=== PATIENT | male | born 1960 ===

== ENCOUNTER 2017-05-27 19:29 | Emergency (ER) | payer OTHER ==
[~2017-05-27] VITALS: Ht 162.6 cm; Wt 53.1 kg
[~2017-05-27 19:29] MED LIST: ASPI-484 PO; ATOR40TA PO; CEPH-350 PO; CLOP75TA52 PO; FURO-81 PO; LISI10TA2 PO; METO50TA4 PO
[2017-05-27 20:00] VITALS: BP 114/57
[2017-05-27] MEDS: DUONEB 0.5 MG-3 MG/3 ML SOLN IH STA (20:34)
[2017-05-27] MEDS ORDERED: DUONEB 0.5 MG-3 MG/3 ML SOLN IH ONE (20:46)
[2017-05-27 20:50] LABS: BASOPHIL % 0.5 % (0.0-0.2); EOSINOPHIL # 0.2 10^3/uL (0.0-0.2); EOSINOPHIL % 5.4 % (0.0-5.0); LYMPHOCYTES # 0.5 10^3/uL (1.0-4.8); LYMPHOCYTES % 12.4 % (24.0-44.0); MEAN CELL HGB 31.5 pg (26-34); MEAN CELL HGB CONCENTRATION 32.8 g/dL (33-37); MEAN PLATELET VOLUME 10.7 fL (7.8-11.0); MONOCYTES # 0.4 10^3/uL (0.3-0.8); MONOCYTES % 9.8 % (5.0-12.0); NEUTROPHIL # 2.8 10^3/uL (1.8-7.7); NEUTROPHILS % 71.6 % (41.0-85.0); RED CELL DISTRIBUTION WIDTH 13.2 % (11.5-14.5); WHITE BLOOD CELL 3.9 10^3/uL (4.5-11.0)
--- NOTE | 2017-05-27 21:02 | DIREP ---
PROCEDURE:CHEST 1 VIEW COMPARISON:[facility], CR, XRAY CHEST SINGLE VW, 10/05/2015, 11:55 AM. INDICATIONS:SOB FINDINGS: LUNGS/PLEURA:No significant pulmonary parenchymal abnormalities. No effusions. VASCULATURE:Normal. Unremarkable pulmonary vasculature. CARDIAC:Normal. No cardiac silhouette abnormality or cardiomegaly. MEDIASTINUM:Normal. No visible mass or adenopathy. BONES:Normal. No fracture or visible bony lesion. OTHER:Negative. CONCLUSION:Normal chest examination. No change from prior study Dictated by: Ish Yu M.D. on 05/27/2017 at 09:01 PM
--- NOTE | 2017-05-27 21:05 | PCM.EKG ---
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
[2017-05-27 21:12] LABS: ALANINE AMINOTRANSFERASE(ML) 30 U/L (12-78); ALKALINE PHOSPHATASE 57 U/L (50-136); ASPARTATE AMINO TRANSFERASE 38 U/L (0-35); CALCIUM 8.7 mg/dL (8.4-10.5); CARBON DIOXIDE 29.1 mmol/L (20.0-32); GLUCOSE 109 mg/dL (70-110)
[2017-05-27 22:54] VITALS: BP 114/57
--- NOTE | 2017-05-27 22:54 | ER.PDOC ---
General Chief Complaint: Dyspnea/Respdistress Stated Complaint: SOB,LOW OXYGEN Time seen by MD: 21:37 Source: patient Exam Limitations: no limitations History of Present Illness Initial Comments pt has developed dyspnea, cough; pt has not had any brochodilator inhalers for over one month; denies fever, chills; allegedly has been compliant with diuretics, nebulizer was left at [facility], may retrieve it soon Timing/Duration: 1 hour Severity: mild Activities at Onset: none Prior Episodes/Possible Cause: frequent episodes Modifying Factors: improves with albuterol inhaler, improves with albuterol nebulizer Associated Symptoms: cough Allergies: Coded Allergies: Iodinated Contrast Media - IV Dye (Verified Allergy, Unknown, 10/12/15) Home Meds Reported Medications Cephalexin (KEFLEX) 500 Mg Capsule, 1 CAP PO TID for ANTIBIOTIC, #5 CAP 10/15/15 Furosemide (LASIX) 20 Mg Tablet, 1 TAB PO DAILY for WATER PILL, #30 TAB 3 Refills 10/15/15 Atorvastatin 40MG (LIPITOR 40MG) 40 Mg Tablet, 1 TAB PO DAILY for CHOLESTEROL, # 30 TAB 3 Refills 10/15/15 Lisinopril (LISINOPRIL) 10 Mg Tablet, 1 TAB PO DAILY for BLOOD PRESSURE, #30 TAB 3 Refills 10/15/15 Metoprolol Succinate (TOPROL XL) 50 Mg Tab.er.24h, 1 TAB PO DAILY for BLOOD PRESSURE/HEART RATE, #30 TAB 3 Refills 10/15/15 Clopidogrel Bisulfate (PLAVIX) 75 Mg Tablet, 1 TAB PO DAILY for ANTIPLATELET, # 30 TAB 3 Refills 10/15/15 Aspirin (ASPIR 81) 81 Mg Tablet.dr, 2 TAB PO DAILY for BLOOD THINNER, #30 TAB 3 Refills 10/15/15 Past Medical History Medical History: cardiac problems, congestive heart failure, COPD Surgical History: stent Social History Smoking: less than 1 pack/day Alcohol Use: none Drug Use: none Physical Exam General Appearance: Mild Distress HEENT: PERRL/EOMI, Normal ENT Inspection, TMs Normal, Pharynx Normal Neck: Non-Tender, Full Range of Motion, Supple, Normal Inspection Respiratory: decreased breath sounds Cardiovascular: Normal Peripheral Pulses, Regular Rate, Rhythm, No Edema, No Gallop, No JVD, No Murmur Gastrointestinal: Normal Bowel Sounds, No Organomegaly, No Pulsatile Mass, Non Tender, Soft Results/Orders Results/Orders Laboratory Tests Test 05/27/17 20:40 White Blood Count 3.9 10^3/uL (4.5-11.0) Red Blood Count 3.49 10^6/uL (4.50-5.90) Hemoglobin 11.0 g/dL (13.9-16.3) Hematocrit 33.5 % (37.0-53.0) Mean Corpuscular Volume 96.0 fL (78-100) Mean Corpuscular Hemoglobin 31.5 pg (26-34) Mean Corpuscular Hemoglobin Concent 32.8 g/dL (33-37) Red Cell Distribution Width 13.2 % (11.5-14.5) Platelet Count 166 10^3/uL (150-400) Mean Platelet Volume 10.7 fL (7.8-11.0) Neutrophils (%) (Auto) 71.6 % (41.0-85.0) Lymphocytes (%) (Auto) 12.4 % (24.0-44.0) Monocytes (%) (Auto) 9.8 % (5.0-12.0) Neutrophils # (Auto) 2.8 10^3/uL (1.8-7.7) Lymphocytes # (Auto) 0.5 10^3/uL (1.0-4.8) Monocytes # (Auto) 0.4 10^3/uL (0.3-0.8) Absolute Immature Granulocyte (auto 0.01 10^3 u/L (0-2) Eosinophils % 5.4 % (0.0-5.0) Basophils % 0.5 % (0.0-0.2) Basophils # 0.0 10^3/uL (0.0-0.1) Eosinophil Count 0.2 10^3/uL (0.0-0.2) Sodium Level 138 mmol/L (132-145) Potassium Level 3.8 mmol/L (3.6-5.2) Chloride Level 102.0 mmol/L (96-109) Carbon Dioxide Level 29.1 mmol/L (20.0-32) Anion Gap 10.7 Blood Urea Nitrogen 37 mg/dL (7-18) Creatinine 1.79 mg/dL (0.59-1.40) Estimated GFR () 47.9 (>/=60) BUN/Creatinine Ratio 20.0 Glucose Level 109 mg/dL (70-110) Calcium Level 8.7 mg/dL (8.4-10.5) Total Bilirubin 0.5 mg/dL (0.2-1.0) Aspartate Amino Transf (AST/SGOT) 38 U/L (0-35) Alanine Aminotransferase (ALT/SGPT) 30 U/L (12-78) Alkaline Phosphatase 57 U/L (50-136) Troponin I < 0.02 ng/mL (0.00-0.05) Pro-B-Type Natriuretic Peptide 1290 pg/mL (0-125) Total Protein 7.6 g/dL (6.4-8.2) Albumin 3.3 g/dL (3.4-5.0) Globulin 4.3 Percent Immature Gran (Cell Imm) 0.30 % (0.00-0.50) Administered Medications Medications (Trade) Dose Ordered Sig/Veronica Route PRN Reason Start Time Stop Time Status Last Admin Dose Admin Albuterol/ Ipratropium (Duoneb 0.5 Mg-3 Mg/3 ml Soln) 3 ml STAT STAT IH 05/27/17 20:34 05/27/17 20:35 DC 05/27/17 20:34 Departure Time of Disposition: 22:51 Disposition: 01 HOME, SELF-CARE Impression: Primary Impression: Dyspnea Additional Impression: Chronic obstructive pulmonary disease Condition: Improved Referrals: PCP,UNKNOWN (PCP) PRIMARY CARE PROVIDER Additional Instructions: pt has had long standing complaints of dysphagia, defer furteher work up to PCP in [place] EKg, troponin WNL Duration or Time Spent with Pa: 20 Problem Qualifiers Primary Impression: Dyspnea Dyspnea type: shortness of breath Qualified Codes: R06.02 - Shortness of breath Additional Impression: Chronic obstructive pulmonary disease COPD type: COPD with acute exacerbation Qualified Codes: J44.1 - Chronic obstructive pulmonary disease with (acute) exacerbation CHARANJIT BYERS MD May 27, 2017 22:54
[2017-05-27] MEDS ORDERED: ROBITUSSIN AC ONE (22:56)
[2017-05-27] MEDS ORDERED: ROBITUSSIN AC PO STA (22:56)
== END 2017-05-27 23:07 | disposition home or self-care (01) ==
LOC: ER 19:29
DX: J44.1 Chronic obstructive pulmonary disease with (acute) exacerbation (principal); I50.9 Heart failure, unspecified; F17.200 Nicotine dependence, unspecified, uncomplicated; Z79.01 Long term (current) use of anticoagulants; Z79.82 Long term (current) use of aspirin; Z88.8 Allergy status to other drugs, medicaments and biological substances; Z79.899 Other long term (current) drug therapy
CPT/HCPCS: 36415; 71045; 80053; 83880; 84484; 85025; 87040 ×2; 93005; 94640; 99285; J0745; J7620

== ENCOUNTER 2017-06-07 07:50 | Emergency (ER) | payer OTHER ==
[~2017-06-07] VITALS: Ht 162.6 cm; Wt 49.9 kg
--- NOTE | 2017-06-07 07:50 | NUR ---
ARRIVAL PT ARRIVED VIA STRETCHER BY [facility] TO ER 2 C/O "LETHARGY" AND "NOT ACTING LIKE HIMSELF" PER PT FAMILY ON SCENE UPON EMS ARRIVAL. PT DISCHARGED FROM [facility] YESTERDAY AFTER PEG TUBE PLACEMENT. PT FEBRILE, TACHYCARDIC. PT ALERT AND ORIENTED, ABLE TO ANSWER TRIAGE QUESTIONS. PT LYING IN POSITION, REFUSES TO CHANGE POSITIONS. EDP NOTIFIED OF PT ARRIVAL.
[2017-06-07] MEDS ORDERED: TYLENOL RC ONE (07:59)
[2017-06-07] MEDS ORDERED: TYLENOL RC STA (08:01)
[2017-06-07 08:06] VITALS: BP 161/85
[2017-06-07 08:14] LABS: ABG PCO2 21.5 mmHg (35.0-45.0); ABG PH 7.462 (7.350-7.450); BE(B) -6.9 mmol/L (-2.0-2.0); pO2 51.2 mmHg (75.0-100.0)
[2017-06-07 08:16] LABS: BASOPHIL % 0.1 % (0.0-0.2); EOSINOPHIL % 0.1 % (0.0-5.0); HEMOGLOBIN 11.3 g/dL (13.9-16.3); LYMPHOCYTES # 0.7 10^3/uL (1.0-4.8); LYMPHOCYTES % 9.2 % (24.0-44.0); MEAN CELL HGB 31.3 pg (26-34); MEAN CELL HGB CONCENTRATION 32.8 g/dL (33-37); MEAN CORP VOLUME 95.6 fL (78-100); MEAN PLATELET VOLUME 11.3 fL (7.8-11.0); MONOCYTES # 0.3 10^3/uL (0.3-0.8); MONOCYTES % 4.8 % (5.0-12.0); NEUTROPHILS % 85.5 % (41.0-85.0); RED CELL DISTRIBUTION WIDTH 14.8 % (11.5-14.5)
--- NOTE | 2017-06-07 08:29 | PCM.EKG ---
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: : 1960 Requested By: LILIA ROCA Order Number: [id number] Reading MD: Lilia ROCA Measurements Intervals [place] Rate: 161 P: 81 VT: 114 QRS: 69 QRSD: 68 T: -57 QT: 232 QTc: 379 Interpretive Statements Sinus tachycardia with fusion complexes Anteroseptal infarct, age undetermined Abnormal ECG Compared to ECG 05/27/2017 21:04:28 Fusion complex(es) now present Sinus rhythm no longer present Myocardial infarct finding still present Electronically Signed On 06-07-2017 10:31:06 OUTREACH COORDINATOR by Lilia ROCA Please click the below link to view image of tracing.
[2017-06-07 08:32] LABS: BAND NEUTROPHILS 20 % (2-6); LYMPHOCYTE 10 % (25-36); MONOCYTE 3 % (3-9); SEGMENTED NEUTROPHILS 67 % (31-76)
[2017-06-07 08:42] LABS: CALCIUM 8.1 mg/dL (8.4-10.5); CARBON DIOXIDE 18.1 mmol/L (20.0-32)
--- NOTE | 2017-06-07 08:43 | DIREP ---
PROCEDURE:CHEST 1 VIEW COMPARISON:[facility], CR, XRAY CHEST SINGLE VW, 05/27/2017, 08:49 PM. [facility], CR, XRAY CHEST SINGLE VW, 10/05/2015, 11:55 AM. INDICATIONS:fever FINDINGS: LUNGS/PLEURA:No significant pulmonary parenchymal abnormalities. No effusions. VASCULATURE:Normal. Unremarkable pulmonary vasculature. CARDIAC:Normal. No cardiac silhouette abnormality or cardiomegaly. MEDIASTINUM:Normal. No visible mass or adenopathy. BONES:Normal. No fracture or visible bony lesion. OTHER:Negative. CONCLUSION:No acute cardiopulmonary abnormalities. Dictated by: Taye Escoto M.D. on 06/07/2017 at 08:41 AM
[2017-06-07] MEDS ORDERED: LEVAQUIN 100 ML IV STA (08:49)
[2017-06-07] MEDS ORDERED: LEVAQUIN 100 ML IV ONE (08:49)
--- NOTE | 2017-06-07 08:55 | NUR ---
KILEY QUEVEDO MBA ON PHONE WITH KILEY RECIO AT THIS TIME REGARDING PT.
[2017-06-07 08:57] LABS: BILIRUBIN,URINE NEGATIVE (NEGATIVE); UROBILINOGEN,URINE NORMAL (NEGATIVE)
[2017-06-07] MEDS ORDERED: NS 1000ML 1,000 ML IV STA ×2 (08:57→10:21)
[2017-06-07 08:59] LABS: APPEARANCE,URINE CLEAR (CLEAR); UA COLOR DARK YELLOW (YELLOW)
[2017-06-07 09:00] VITALS: BP 128/83
[2017-06-07] MEDS ORDERED: NS 500ML 500 ML IV ONE (09:00)
[2017-06-07 09:02] LABS: WBC,URINE 0-2 WBC/HPF (0-2)
--- NOTE | 2017-06-07 09:15 | NUR ---
[facility] STATES WAITING FOR PTS TO BE DISCHARGED BEFORE ABLE TO GIVE ROOM ASSIGNMENT. WILL NOTIFY ER WHEN BED IS AVAILABLE.
--- NOTE | 2017-06-07 09:18 | ER.PDOC ---
General Chief Complaint: General Complaint Stated Complaint: LETHARGIC TRAVEL OUT OF US: No Time seen by MD: 09:10 Source: family, EMS Exam Limitations: no limitations History of Present Illness Initial Comments Lethargy, patient discharged from [facility] yesterday. He has HIV. Timing/Duration: 24 hours Severity: moderate Associated Symptoms: cough, fever/chills Allergies: Coded Allergies: Iodinated Contrast Media - IV Dye (Verified Allergy, Unknown, 10/12/15) Home Meds Reported Medications Cephalexin (KEFLEX) 500 Mg Capsule, 1 CAP PO TID for ANTIBIOTIC, #5 CAP 10/15/15 Furosemide (LASIX) 20 Mg Tablet, 1 TAB PO DAILY for WATER PILL, #30 TAB 3 Refills 10/15/15 Atorvastatin 40MG (LIPITOR 40MG) 40 Mg Tablet, 1 TAB PO DAILY for CHOLESTEROL, # 30 TAB 3 Refills 10/15/15 Lisinopril (LISINOPRIL) 10 Mg Tablet, 1 TAB PO DAILY for BLOOD PRESSURE, #30 TAB 3 Refills 10/15/15 Metoprolol Succinate (TOPROL XL) 50 Mg Tab.er.24h, 1 TAB PO DAILY for BLOOD PRESSURE/HEART RATE, #30 TAB 3 Refills 10/15/15 Clopidogrel Bisulfate (PLAVIX) 75 Mg Tablet, 1 TAB PO DAILY for ANTIPLATELET, # 30 TAB 3 Refills 10/15/15 Aspirin (ASPIR 81) 81 Mg Tablet.dr, 2 TAB PO DAILY for BLOOD THINNER, #30 TAB 3 Refills 10/15/15 Past Medical History Medical History: coronary artery disease, congestive heart failure, COPD, emphysema, other (HIV) Surgical History: stent Social History Drug Use: none Review of Systems Constitutional: chills, fever EENTM: no symptoms reported Respiratory: cough Cardiovascular: no symptoms reported Gastrointestinal: no symptoms reported Genitourinary: no symptoms reported All Other Systems: Reviewed and Negative Physical Exam General Appearance: No Apparent Distress, Cachetic EENT: eyes nml inspection Neck: Non-Tender, Full Range of Motion Respiratory: chest non-tender, lungs clear, normal breath sounds, no respiratory distress CVS: reg rate & rhythm, no murmur, no gallop, pulses nml, tachycardia Gastrointestinal: Normal Bowel Sounds, No Organomegaly, No Pulsatile Mass, Non Tender, Other (Feeding tube in left abdomen) Back: Normal Inspection Extremities: Normal Range of Motion 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 NML as Tested, No Motor/Sensory Deficits, Alert, Oriented x 3 Skin: Normal Color Results/Orders Results/Orders Laboratory Tests Test 06/07/17 07:59 06/07/17 08:04 06/07/17 08:15 06/07/17 08:18 White Blood Count 7.0 10^3/uL (4.5-11.0) Red Blood Count 3.61 10^6/uL (4.50-5.90) Hemoglobin 11.3 g/dL (13.9-16.3) Hematocrit 34.5 % (37.0-53.0) Mean Corpuscular Volume 95.6 fL (78-100) Mean Corpuscular Hemoglobin 31.3 pg (26-34) Mean Corpuscular Hemoglobin Concent 32.8 g/dL (33-37) Red Cell Distribution Width 14.8 % (11.5-14.5) Platelet Count 126 10^3/uL (150-400) Mean Platelet Volume 11.3 fL (7.8-11.0) Neutrophils (%) (Auto) 85.5 % (41.0-85.0) Lymphocytes (%) (Auto) 9.2 % (24.0-44.0) Monocytes (%) (Auto) 4.8 % (5.0-12.0) Neutrophils # (Auto) 6.0 10^3/uL (1.8-7.7) Lymphocytes # (Auto) 0.7 10^3/uL (1.0-4.8) Monocytes # (Auto) 0.3 10^3/uL (0.3-0.8) Absolute Immature Granulocyte (auto 0.02 10^3 u/L (0-2) Eosinophils % 0.1 % (0.0-5.0) Basophils % 0.1 % (0.0-0.2) Basophils # 0.0 10^3/uL (0.0-0.1) Eosinophil Count 0.0 10^3/uL (0.0-0.2) Urine Collection Type VOID Urine Color DARK YELLOW (YELLOW) Urine Appearance CLEAR (CLEAR) Urine Bilirubin NEGATIVE MG/DL (NEGATIVE) Urine Ketones NEGATIVE (NEGATIVE) Urine Specific [place] 1.020 (1.005-1.035) Urine pH 6 (5.0-6.0) Urine Protein 30 mg/dL (NEGATIVE) Urine Urobilinogen NORMAL (NEGATIVE) Urine Nitrate NEGATIVE (NEGATAIVE) Urine Leukocyte Esterase NEGATIVE (NEGATIVE) Urine Blood 250 4+ (NEGATIVE) Urine RBC 0-2 RBC/HPF (NONE SEEN) Urine WBC 0-2 WBC/HPF (0-2) Urine Amorphous Sediment SMALL (NONE SEEN) Urine Bacteria FEW (NONE SEEN) Urine Hyaline Casts 0-1 (NONE SEEN) Urine Glucose NORMAL (NEGATIVE) Sodium Level 138 mmol/L (132-145) Potassium Level 4.1 mmol/L (3.6-5.2) Chloride Level 106.0 mmol/L (96-109) Carbon Dioxide Level 18.1 mmol/L (20.0-32) Anion Gap 18.0 Blood Urea Nitrogen 23 mg/dL (7-18) Creatinine 1.72 mg/dL (0.59-1.40) Estimated GFR () 50.2 (>/=60) BUN/Creatinine Ratio 13.0 Glucose Level 111 mg/dL (70-110) Calcium Level 8.1 mg/dL (8.4-10.5) Total Bilirubin 0.6 mg/dL (0.2-1.0) Aspartate Amino Transf (AST/SGOT) 603 U/L (0-35) Alanine Aminotransferase (ALT/SGPT) 265 U/L (12-78) Alkaline Phosphatase 82 U/L (50-136) Total Creatine Kinase 1564 U/L (39-308) Creatine Kinase MB 6.4 ng/mL (0.5-3.6) Troponin I 0.31 ng/mL (0.00-0.05) Pro-B-Type Natriuretic Peptide 5215 pg/mL (0-125) Total Protein 6.3 g/dL (6.4-8.2) Albumin 2.6 g/dL (3.4-5.0) Globulin 3.7 Percent Immature Gran (Cell Imm) 0.30 % (0.00-0.50) Blood Gas Sample Site left radial Blood Gas pH 7.462 (7.350-7.450) Blood Gas PCO2 21.5 mmHg (35.0-45.0) Blood Gas PO2 51.2 mmHg (75.0-100.0) Blood Gas HCO3 15.0 mmol/L (22.0-26.0) Blood Gas Base Excess -6.9 mmol/L (-2.0-2.0) Michele Test N/A Arterial Blood Oxygen Saturation 86.7 % (95-) Deoxyhemoglobin 13.2 % (0.2-0.6) Carboxyhemoglobin 0.3 % (0.5-1.5) Methemoglobin 0.3 % (0.2-0.6) Total Hemoglobin 11.9 % (13.5-17.5) Total Oxygen Concentration 14.4 % (13.5-17.5) Lactic Acid (Blood Gas) 3.5 MMOL/L (0.5-1.0) Blood Gas Temperature 37 Oxygen Delivery Method (LAB) ra FiO2 21 % (20-101) Bicarbonate 15.7 mmol/L (23-27) Prothrombin Time 14.2 SEC (9.8-11.9) Prothrombin Time INR (Non-Therap) 1.4 Activated Partial Thromboplast Time 37.5 SEC (24.67-30.72) Differential Total Cells Counted 100 #CELLS Segmented Neutrophils 67 % (31-76) Band Neutrophils 20 % (2-6) Lymphocytes 10 % (25-36) Monocytes 3 % (3-9) Platelet Estimate ADEQUATE Platelet Morphology NORMAL Administered Medications Medications (Trade) Dose Ordered Sig/Veronica Route PRN Reason Start Time Stop Time Status Last Admin Dose Admin Acetaminophen (Tylenol) 650 mg STAT STAT RC 06/07/17 08:01 06/07/17 08:03 DC 06/07/17 08:08 Levofloxacin/ Dextrose 100 ml @ 100 mls/hr STAT STAT IV 06/07/17 08:49 06/07/17 09:48 06/07/17 08:56 EKG/XRAY/CT/US EKG Comments: Sinus tachycardia XRAY: chest (No active disease) Departure Time of Disposition: :17 Disposition: 02 XFER SHT-TRM HOSP Impression: Primary Impression: Sepsis Qualified Codes: A41.9 - Sepsis, unspecified organism Additional Impressions: Respiratory failure with hypoxia Qualified Codes: J96.01 - Acute respiratory failure with hypoxia Elevated troponin Rhabdomyolysis Qualified Codes: M62.82 - Rhabdomyolysis JOSE (acute kidney injury) Pneumonia Qualified Codes: J18.9 - Pneumonia, unspecified organism HIV disease Condition: Critical Referrals: PCP,UNKNOWN (PCP) PRIMARY CARE PROVIDER Comments Transfer to [facility] ED for Dr. Palmer. Patient was discharged by him yesterday and I spoke to him. Duration or Time Spent with Pa: 70 mins Critical Care Note Total Time (mins): 70 LILIA ROCA MD Jun 07, 2017 09:18
[2017-06-07] MEDS ORDERED: VANCOMYCIN HCL PO STA (09:20)
[2017-06-07] MEDS ORDERED: MISC MC STA (09:53)
[2017-06-07 09:56] VITALS: BP 104/67
[2017-06-07] MEDS ORDERED: VANCOMYCIN HCL IV ONE (10:00)
[2017-06-07] MEDS ORDERED: NS IV ONE (10:00)
--- NOTE | 2017-06-07 10:25 | NUR ---
STATUS PT RESTING QUIETLY IN BED. NO NEEDS VOICED.
[2017-06-07 10:40] VITALS: BP 118/68
[2017-06-07 11:00] VITALS: BP 135/68
--- NOTE | 2017-06-07 11:46 | NUR ---
STATUS PT RESTING QUIETLY IN BED WITH FRIEND AT BEDSIDE. NO NEEDS VOICED.
[2017-06-07] MEDS ORDERED: NS 1000ML 1,000 ML ONE (12:25)
[2017-06-07 12:31] VITALS: BP 117/64
--- NOTE | 2017-06-07 12:31 | NUR ---
PT LEFT DEPT PT LEFT DEPT AT THIS TIME WITH [facility]. PT BEING TRANSFERRED TO [place] [id number].
== END 2017-06-07 12:31 | disposition short-term general hospital (02) ==
LOC: EDBD 07:55 → ER 07:55
DX: A41.9 Sepsis, unspecified organism (principal); J96.91 Respiratory failure, unspecified with hypoxia; M62.82 Rhabdomyolysis; N17.9 Acute kidney failure, unspecified; J18.9 Pneumonia, unspecified organism; Z21 Asymptomatic human immunodeficiency virus [HIV] infection status; R79.89 Other specified abnormal findings of blood chemistry; I50.9 Heart failure, unspecified; J44.9 Chronic obstructive pulmonary disease, unspecified; Z79.899 Other long term (current) drug therapy; Z79.82 Long term (current) use of aspirin
CPT/HCPCS: 36415; 71045; 80053; 81000; 82550; 82553; 82803; 83880; 84484; 85025; 85610; 85730; 86710; 87040 ×2; 93005; 96361; 96365; 96367; 99291; J1956; J7030; J7050